=== PATIENT | male | born 1970 | race Caucasian/White ===

== ENCOUNTER → 2018-06-26 13:33 | Outpatient (CLI) | payer OTHER, SELFPAY ==
--- NOTE | 2018-06-26 13:37 | CT_ITS ---
STUDY: CT MAXILLOFACIAL SINUSES REASON FOR EXAM: Male, 48 years old. Nasal polyps, previous surgery RADIATION DOSAGE (If Supplied By Facility): CTDIvol = ( 33.45 ) mGy, DLP = ( 780.55 ) mGycm TECHNIQUE: The patient was scanned in a multi detector CT scanner. High resolution axial imaging was performed without the administration of intravenous contrast material. Sagittal and coronal images were reconstructed. Individualized dose optimization techniques were used for this CT. COMPARISON: None. FINDINGS: FRONTAL SINUSES: Normal aeration, with mucosal inflammatory disease. ETHMOIDAL SINUSES: Normal aeration, with significant mucosal inflammatory disease. MAXILLARY SINUSES: Normal aeration, with mucosal inflammatory disease. SPHENOIDAL SINUSES: Normal aeration, with mucosal inflammatory disease. There is patency of the left bilateral maxillary infundibuli, with occlusion of the right. There has however been previous antrectomy. The visualized osseous structures are normal. The visualized bilateral orbital contents are normal. CT/Sinus/Facial Bone IMPRESSION: Diffuse og paranasal sinusitis Electronically Signed: Tee Biggs MD at 18:26 EDT , Service support ,
== END ==
PROVIDERS: Referring Provider Otolaryngology; Visit Provider Otolaryngology
DX: J33.9 Nasal polyp, unspecified (principal)
CPT/HCPCS: 70486

== ENCOUNTER 2018-09-24 09:28 | Day surgery (SDC) | payer OTHER, SELFPAY ==
--- NOTE | 2018-09-24 | ETH_PTH ---
PATIENT: GABRIELLA MCFARLANE LOC[place] [facility] [place][id number] AGE/SX: 48/M ROOM: RE09/24/[address]: Dr. Bay Mckeon MD : 1970 BED: DIS: 09/24/2018 SPEC #: [id number] RECD: 09/24/18 14:33 STATUS: MARCIANO ERICKA #: [id number] TRISTON: 09/24/18 00:[address]: Bay Mckeon DEPT: SURGICAL PATHOLOGY RECD BY: Jean-Claude Yung ENTERED: 09/24/18 14:34 SP TYPE: ETH TISS OTHR DR: No Primary Care Phys Tissues: A - Ethmoid sinus, NOS B - Ethmoid sinus, NOS Procedures: Decalcification bone/plaque Surgery Specimen Level III HEADER OPERATION: Functional endoscopic sinus surgery with navigation PRE-OP DIAGNOSIS: Acute recurrent pansinusitis TISSUE SUBMITTED: A - Right ethmoid and maxillary sinus contents, B - Left ethmoid and maxillary sinus contents MICROSCOPIC DIAGNOSIS A. Right ethmoid and maxillary sinus contents, excision: Consistent with chronic sinusitis. Bone with no significant pathologic change. B. Left ethmoid and maxillary sinus contents, excision: Consistent with chronic sinusitis. Bone with no significant pathologic change. AM:dian 09/27/18 MICROSCOPIC DESCRIPTION Slides are reviewed. GROSS DESCRIPTION A - Received in fixative is one container labeled with the patient's name and designated right ethmoid and maxillary sinus contents. The specimen consists of multiple irregular and foamy fragments of red-casey soft tissue that in aggregate measure 6 x 4 x 1 cm. Also present in the specimen is a portion of what appears to be a turbinate measuring 3 x 1 x 0.2 cm. Bottle Blower portions are submitted in one cassette after decalcification. B - Received in fixative is one container labeled with the patient's name and designated left ethmoid and maxillary sinus contents. The specimen consists of multiple irregular fragments of pink-casey soft tissue with portions of grossly presumed turbinates that in aggregate measure 2.5 x 0.8 x 0.3 cm. The specimen is totally submitted in one cassette after decalcification. / AM:dian 09/24/18 TC:3 CPT: 88007 x2, 54104 x2
--- NOTE | 2018-09-24 09:43 | EKG12_ITS ---
Test Reason : PRE-OP Blood Pressure : / mmHG Vent. Rate : 046 BPM Atrial Rate : 046 BPM P-R Int : 146 ms QRS Dur : 098 ms QT Int : 422 ms P-R-T Axes : 069 030 024 degrees QTc Int : 369 ms Sinus bradycardia Otherwise normal ECG Confirmed by LUBNA HUTSON, SRAVANI ([id number]), proposal editor CHAITANYA HOLT ([id number]) on 09/25/2018 1:58:54 PM Referred By: Salty Mckeon Confirmed By:SRAVANI CALVO MD
[2018-09-24 10:06] VITALS: BP 129/88; PULSE 46; RESP 16; TEMP 36.8; O2SAT 100; BMI 24.4
[2018-09-24] MEDS: Oxymetazoline 0.05% 1 SPRAY SPRAY.BTL 15 SPRAY (10:52)
--- NOTE | 2018-09-24 13:24 | OP.PCM_ITS ---
Problem List (1) Chronic pansinusitis Status: Chronic (2) Sinusitis with nasal polyps Status: Chronic Report of Operation Date of Procedure: 09/24/18 Pre-Operative Diagnosis: chronic pansinusitis. sinonasal polyposis Post-Operative Diagnosis: chronic pansinusitis. sinonasal polyposis Surgery/Procedure Performed:: 1. endoscopic maxillary antrostomy with removal of contents, right and left. 2. endoscopic total ethmoidectomy including sphenoidotomy with removal of tissue, right and left. 3. endoscopic frontal sinus exploration, right and left. 4. CT guided navigation. 5. excessive polypectomy, right and left Type of Anesthesia:: General Description of Procedure: on the day of the procedure, after appropriate informed consent was obtained, the patient was brought to the operating room and placed in supine position on the operating table. she was placed under general endotracheal anesthesia; the endotracheal tube was secured, the eyes were lubricated. the image guidance system was set up, registered and accuracy confirmed. the bilateral nasal cavities were decongested with oxymetazoline soaked pledge ts. the superior attachment of the middle turbinate and uncinate process were injected with lidocaine/epinephrine. the left nasal cavity was examined with the endoscope. the acclarent sinuplasty kit was set up and advanced lateral to the superior attachment of the middle turbinate. the fiberoptic light cord was advanced into the frontal sinus and frontal transillumination was seen. the balloon was advanced and inflated to 12 vannesa and deflated. contents were suctionedhe microdebrider was used to remove middle meatus and anterior ethmoid polyps. a maxillary antrostomy and uncinectomy were performed with a santo elevator and blakesley. contents were evacuated. a back biter was used to widen the antrostomy. the ethmoid bulla was entered bluntly using the suction and a combination of a curette and an upgoing blakesley were used to perform a total ethmoidectomy. this was taken superiorly to the skull base and laterally to the lamina. a stankewicz maneuver was performed and no laminar defect was noted. the natural sphenoid os was located and widened using a dodie cut. contents were evacuated. the anterior/inferior portion of the middle turbinate was removed with turbinate s cizzors and cauterized. the area was irrigated, pledgets were replaced, and hemostasis was achieved. the right nasal cavity was examined with the endoscope. the acclarent sinuplasty kit was set up and advanced lateral to the superior attachment of the middle turbinate. the fiberoptic light cord was advanced into the frontal sinus and frontal transillumination was seen. the balloon was advanced and inflated to 12 vannesa and deflated. contents were suctioned.a maxillary antrostomy and uncinectomy were performed with a santo elevator and blakesley. contents were evacuated. a back biter was used to widen the antrostomy. the ethmoid bulla was entered bluntly using the suction and a combination of a curette and an upgoing blakesley were used to perform a total ethmoidectomy. this was taken superiorly to the skull base and laterally to the lamina. a stankewicz maneuver was performed and no laminar defect was noted. the natural sphenoid os was located and widened using a dodie cut. contents were evacuated. the anterior/inferior portion of the middle turbinate was removed with turbinate scizzors and cauterized. the area was irrigated, pledgets were replaced, and hemostasis was achieved. the patient was extubated uneventfully and transferred to the PACU in stable condition.
--- NOTE | 2018-09-24 13:32 | DCINST_ITS ---
You will use the following diet at home:: No restrictions Your food should be the consistency of: Regular Discharge Activity: Return to Normal Activity Call your doctor if your incision/area has: Increased Pain/ Swelling Additional Dressing/Incision Instructions:: irrigate nasal cavities 5-6 times daily with saline spray Allergies/Adverse Reactions: Allergies No Known Allergies Allergy (Verified 09/23/18 12:50) Medications to take at Discharge Albuterol Inhaler [Ventolin Hfa (SP)] 1 - 2 puff INHALATION Q4H PRN PRN 09/23/18 Fexofenadine HCl [Ania Allergy] 180 mg PO DAILY 09/23/18 Fluticasone 0.05% [Flonase Nasal Success] 2 spray NASAL BID 09/23/18 Fluticasone/Salmeterol [Advair 250-50 Diskus] 1 each IH DAILY 09/23/18 Prednisone 30 mg PO DAILY 09/23/18 Acetaminophen/Codeine #3 [Tylenol#3] 1 tab PO Q6H PRN PRN 5 Days #15 tab 09/24/18 MethylPREDNISolone DosePak [Medrol DosePak] 4 mg PO UD #1 box 09/24/18 The following prescriptions were given: Acetaminophen/Codeine #3 [Tylenol#3] 1 tab PO Q6H PRN PRN 5 Days #15 tab PRN Reason: Pain MethylPREDNISolone DosePak [Medrol DosePak] 4 mg PO UD #1 box Primary Care Physician: Care Physician,No Primary [Primary Care Provider] - Test Results: Test results from this visit will be discussed in further detail at your follow- up appointment, if applicable. Please Follow Up With: Salty Mckeon MD When: 1 week
[2018-09-24 13:35] VITALS: BP 121/88; BP 129/88; PULSE 71; RESP 14; TEMP 35.7; O2SAT 91
[2018-09-24 13:47] VITALS: BP 119/89; BP 129/88; PULSE 72; RESP 16; O2SAT 94
[2018-09-24 14:00] VITALS: BP 129/88; BP 136/87; PULSE 62; RESP 16; O2SAT 97
[2018-09-24 14:11] VITALS: BP 129/88; BP 135/85; PULSE 57; RESP 16; TEMP 36.1; O2SAT 94
[2018-09-24] MEDS: Acetaminophen/Codeine #3 Tablet 1 TABLET PO (14:41)
[2018-09-24 15:15] VITALS: BP 129/88
--- OUTSIDE RECORDS SUMMARY | 2018-11-26 10:44 | XMS RPT_ITS ---
:1970 Author Organization OHIP Care Team Providers Name Role Phone Salty Mckeon Attending Unavailable Primay Care Physicia, No Primary Care Unavailable Salty Mckeon Referring Unavailable Salty Mckeon Attending Unavailable Salty Mckeon Referring Unavailable Primay Care Physicia, No Primary Care Unavailable OUMAR ESQUEDA Attending Unavailable NO FAMILY DOCTOR, NO FAMILY DOCTOR Primary Care Unavailable PROBLEMS PROBLEMS DATE TYPE CONDITION / CODE ATTENDING STATUS SOURCE 05/23/2018 Admitting Cough / OUMAR ESQUEDA Active [facility] Healthcare diagnosis R05(ICD-9) Repository 05/23/2018 Final diagnosis 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, Repository not elsewhere classified / J82(ICD-9) 05/23/2018 Admitting Shortness of OUMAR ESQUEDA [facility] diagnosis breath / Repository R06.02(ICD-9) PROCEDURES PROCEDURES No Procedure Records FoundRESULTS RESULTS 12 LEAD ELECTROCARDIOGRAM Observed: 09/25/2018 Status: F Source: [place] 1:59 PM [facility] REPOSITORY [facility] Cardiovascular Services [address] [place] [address] 12 Lead EKG 09/24/18 0953 MR#: [id number] Acct: [id number] Name: GABRIELLA MCFARLANE Rep #: [id number] : 1970 48 From: Oumar Calvo MD Attending Dr: Bay Mckeon MD Status: [place] [facility] [place]: Noel Cantu MD Date: 09/24/18 [place] [facility] [place] Sex: M C Admitted: Test Reason : PRE-OP Blood Pressure : / mmHG Vent. Rate : 046 BPM Atrial Rate : 046 BPM P-R Int : 146 ms QRS Dur : 098 ms QT Int : 422 ms P-R-T Axes : 069 030 024 degrees QTc Int : 369 ms Sinus bradycardia Otherwise normal ECG Confirmed by LUBNA HUTSON, OUMAR ([id number]), deputy editor in chief CHAITANYA HOLT ([id number]) on 09/25/2018 1:58:54 PM Referred By: Salty Mckeon Confirmed By:OUMAR CALVO MD 09/25/18 1359 Date Oumar Calvo MD CC: No Primary Care Physician; Bay Mckeon MD; Noel Cantu MD Signed OPERATIVE REPORT Observed: 09/24/2018 Status: F Source: [place] 2:16 PM [facility] Medical Records Department [address] [place] [address] Operative Report 09/24/18 1324 MR#: [id number] Acct: [id number] Name: GABRIELLA MCFARLANE Rep #: [id number] : 1970 48 From: Salty Mckeon MD PCP: Care Physician, No Primary Status: [facility] Location: [place] [address] Problem List (1) Chronic pansinusitis Status: Chronic (2) Sinusitis with nasal polyps Status: Chronic Report of Operation Date of Procedure: 09/24/18 Pre-Operative Diagnosis: chronic pansinusitis. sinonasal polyposis Post-Operative Diagnosis: chronic pansinusitis. sinonasal polyposis Surgery/Procedure Performed:: 1. endoscopic maxillary antrostomy with removal of contents, right and left. 2. endoscopic total ethmoidectomy including sphenoidotomy with removal of tissue, right and left. 3. endoscopic frontal sinus exploration, right and left. 4. CT guided navigation. 5. excessive polypectomy, right and left Type of Anesthesia:: General Description of Procedure: on the day of the procedure, after appropriate informed consent was obtained, the patient was brought to the operating room and placed in supine position on the operating table. she was placed under general endotracheal anesthesia; the endotracheal tube was secured, the eyes were lubricated. the image guidance system was set up, registered and accuracy confirmed. the bilateral nasal cavities were decongested with oxymetazoline soaked pledgets. the superior attachment of the middle turbinate and uncinate process were injected with lidocaine/epinephrine. the left nasal cavity was examined with the endoscope. the acclarent sinuplasty kit was set up and advanced lateral to the superior attachment of the middle turbinate. the fiberoptic light cord was advanced into the frontal sinus and frontal transillumination was seen. the balloon was advanced and inflated to 12 vannesa and deflated. contents were suctionedhe microdebrider was used to remove middle meatus and anterior ethmoid polyps. a maxillary antrostomy and uncinectomy were performed with a santo elevator and blakesley. contents were evacuated. a back biter was used to widen the antrostomy. the ethmoid bulla was entered bluntly using the suction and a combination of a curette and an upgoing blakesley were used to perform a total ethmoidectomy. this was taken superiorly to the skull base and laterally to the lamina. a stankewicz maneuver was performed and no laminar defect was noted. the natural sphenoid os was located and widened using a dodie cut. contents were evacuated. the anterior/inferior portion of the middle turbinate was removed with turbinate scizzors and cauterized. the area was irrigated, pledgets were replaced, and hemostasis was achieved. the right nasal cavity was examined with the endoscope. the acclarent sinuplasty kit was set up and advanced lateral to the superior attachment of the middle turbinate. the fiberoptic light cord was advanced into the frontal sinus and frontal transillumination was seen. the balloon was advanced and inflated to 12 vannesa and deflated. contents were suctioned.a maxillary antrostomy and uncinectomy were performed with a santo elevator and blakesley. contents were evacuated. a back biter was used to widen the antrostomy. the ethmoid bulla was entered bluntly using the suction and a combination of a curette and an upgoing blakesley were used to perform a total ethmoidectomy. this was taken superiorly to the skull base and laterally to the lamina. a stankewicz maneuver was performed and no laminar defect was noted. the natural sphenoid os was located and widened using a dodie cut. contents were evacuated. the anterior/inferior portion of the middle turbinate was removed with turbinate scizzors and cauterized. the area was irrigated, pledgets were replaced, and hemostasis was achieved. the patient was extubated uneventfully and transferred to the PACU in stable condition. 09/24/18 1416 <Electronically signed by Salty Mckeon MD> Date Salty Mckeon MD CC: No Primary Care Physician; Bay Mckeon MD Signed DISCHARGE INSTRUCTION Observed: 09/24/2018 Status: F Source: [place] 1:32 PM [facility] REPOSITORY [facility] Medical Records Department [address] [place] [address] Instructions for Home/Discharge Instructions 09/24/18 1331 MR#: [id number] Acct: [id number] Name: GABRIELLA MCFARLANE Rep #: [id number] : 1970 48 From: Salty Mckeon MD PCP: Care Physician, No Primary Status: [place] [facility] [place] You will use the following diet at home:: No restrictions Your food should be the consistency of: Regular Discharge Activity: Return to Normal Activity Call your doctor if your incision/area has: Increased Pain/ Swelling Additional Dressing/Incision Instructions:: irrigate nasal cavities 5-6 times daily with saline spray Allergies/Adverse Reactions: Allergies No Known Allergies Allergy (Verified 09/23/18 12:50) Medications to take at Discharge Albuterol Inhaler [Ventolin Hfa (SP)] 1 - 2 puff INHALATION Q4H PRN PRN 09/23/18 Fexofenadine HCl [Ania Allergy] 180 mg PO DAILY 09/23/18 Fluticasone 0.05% [Flonase Nasal [place]] 2 spray NASAL BID 09/23/18 Fluticasone/Salmeterol [Advair 250-50 Diskus] 1 each IH DAILY 09/23/18 Prednisone 30 mg PO DAILY 09/23/18 Acetaminophen/Codeine #3 [Tylenol#3] 1 tab PO Q6H PRN PRN 5 Days #15 tab 09/24/18 MethylPREDNISolone DosePak [Medrol DosePak] 4 mg PO UD #1 box 09/24/18 The following prescriptions were given: Acetaminophen/Codeine #3 [Tylenol#3] 1 tab PO Q6H PRN PRN 5 Days #15 tab PRN Reason: Pain MethylPREDNISolone DosePak [Medrol DosePak] 4 mg PO UD #1 box Primary Care Physician: Care Physician,No Primary [Primary Care Provider] - Test Results: Test results from this visit will be discussed in further detail at your follow-up appointment, if applicable. Please Follow Up With: Salty Mckeon MD When: 1 week 09/24/18 1332 <Electronically signed by Salty Mckeon MD> Date Salty Mckeon MD CC: No Primary Care Physician Signed ETHMOID TISSUE Observed: 09/24/2018 Status: F Source: JAM 12:00 AM [facility] REPOSITORY Patient: GABRIELLA MCFARLANE : 1970 (48/M) Acct Num: [id number] Phys: Bay Mckeon MD Unit Num: [id number] [place] [facility] [place] Specimen: [id number] Received: 09/24/18 - 1433 Spec Type: ETH TISS TISSUES 1 TISSUES: A. Ethmoid sinus, NOS B. Ethmoid sinus, NOS GROSS DESCRIPTION A - Received in fixative is one container labeled with the patient's name and designated right ethmoid and maxillary sinus contents. The specimen consists of multiple irregular and foamy fragments of red-casey soft tissue that in aggregate measure 6 x 4 x 1 cm. Also present in the specimen is a portion of what appears to be a turbinate measuring 3 x 1 x 0.2 cm. Beauty Counselor portions are submitted in one cassette after decalcification. B - Received in fixative is one container labeled with the patient's name and designated left ethmoid and maxillary sinus contents. The specimen consists of multiple irregular fragments of pink-casey soft tissue with portions of grossly presumed turbinates that in aggregate measure 2.5 x 0.8 x 0.3 cm. The specimen is totally submitted in one cassette after decalcification. / AM:dian 09/24/18 TC:3 CPT: 82927 x2, 63625 x2 HEADER OPERATION: Functional endoscopic sinus surgery with navigation PRE-OP DIAGNOSIS: Acute recurrent pansinusitis TISSUE SUBMITTED: A - Right ethmoid and maxillary sinus contents, B - Left ethmoid and maxillary sinus contents MICROSCOPIC DESCRIPTION Slides are reviewed. MICROSCOPIC DIAGNOSIS A. Right ethmoid and maxillary sinus contents, excision: Consistent with chronic sinusitis. Bone with no significant pathologic change. B. Left ethmoid and maxillary sinus contents, excision: Consistent with chronic sinusitis. Bone with no significant pathologic change. AM:dian 09/27/18 Signed Jenaro Amado DO 09/27/18 <signature on file> Performed By: #### PET #### [facility] [address] [facility] [place], [address] SINUS/FACIAL BONE Observed: 06/26/2018 Status: F Source: [place] 1:38 PM [facility] REPOSITORY [facility] Imaging Services [address] [place] [address] Sinus/Facial Bone MR#: [id number] Acct: [id number] Name: GABRIELLA MCFARLANE Rep #: [id number] : 1970 M 48 From: Caden Biggs MD PCP: Care Physician, No Primary Status: REG CLI Study: Sinus/Facial Bone Date of Exam: 06/26/18 Exam# [id number] Ordering Dr: Salty Mckeon MD STUDY: CT MAXILLOFACIAL SINUSES REASON FOR EXAM: Male, 48 years old. Nasal polyps, previous surgery RADIATION DOSAGE (If Supplied By Facility): CTDIvol = ( 33.45 ) mGy, DLP = ( 780.55 ) mGycm TECHNIQUE: The patient was scanned in a multi detector CT scanner. High resolution axial imaging was performed without the administration of intravenous contrast material. Sagittal and coronal images were reconstructed. Individualized dose optimization techniques were used for this CT. COMPARISON: None. FINDINGS: FRONTAL SINUSES: Normal aeration, with mucosal inflammatory disease. ETHMOIDAL SINUSES: Normal aeration, with significant mucosal inflammatory disease. MAXILLARY SINUSES: Normal aeration, with mucosal inflammatory disease. SPHENOIDAL SINUSES: Normal aeration, with mucosal inflammatory disease. There is patency of the left bilateral maxillary infundibuli, with occlusion of the right. There has however been previous antrectomy. The visualized osseous structures are normal. The visualized bilateral orbital contents are normal. CT/Sinus/Facial Bone IMPRESSION: Diffuse og paranasal sinusitis Electronically Signed: Tee Biggs MD at 18:26 EDT , Service support , CC: No Primary Care Physician; Bay Mckeon MD Anchorer: Signed URINALYSIS WITH REFLEX Collected: 05/23/2018 Status: F Source: [facility] CULTURE 9:34 PM REPOSITORY TYPE CODE TESTS RESULT OUT OF REFERENCE UNITS RANGE LAB UCOLR(LOIN C) Color Yellow LAB UAPP(LOINC Clear ) Appearance Clear LAB USPG(LOINC 1.003-1.035 ) Specific [place] 1.014 LAB UPH(LOINC) 5.0-9.0 pH 7.0 LAB ULEU(LOINC Negative ) Leukocytes Esterase Negative LAB UNIT(LOINC Negative ) Nitrite Negative LAB UPRO(LOINC Negative mg/dL ) Protein Negative LAB UGLU(LOINC Negative mg/dL ) Glucose Negative LAB UKET(LOINC Negative mg/dL ) Ketones Negative LAB UURO(LOINC Negative mg/dL ) Urobilinogen <2.0 LAB UBIL(LOINC Negative ) Bilirubin Negative LAB UBLD(LOINC Negative ) Blood Negative LAB UASA(LOINC Negative mg/dL ) Ascorbic Acid Negative LAB UMICP(LOIN C) Automated Urine Microscopy Not indicated Performed By: #### UARFX #### [facility] [address] [place] [address] CHEST 2 VIEW Observed: 05/23/2018 Status: F Source: [facility] 8:35 PM REPOSITORY DATE OF EXAM: May 23 2018 8:35PM CLINICAL HISTORY/ Patient Name: GABRIELLA MCFARLANE STUDY: CHEST 2 VIEW; 05/23/2018 8:35 pm INDICATION: Pain. COMPARISON: None. ACCESSION NUMBER(S): [id number] ORDERING CLINICIAN: OUMAR ESQUEDA FINDINGS: CARDIOMEDIASTINAL SILHOUETTE: Cardiomediastinal silhouette is normal in size and configuration. LUNGS: No consolidation, pleural effusion or pneumothorax. ABDOMEN: No remarkable upper abdominal findings. BONES: No acute osseous abnormality. CONCLUSION: IMPRESSION: No acute cardiopulmonary process. CBC WITH DIFFERENTIAL Collected: 05/23/2018 Status: F Source: [facility] 8:12 PM HEALTHCARE REPOSITORY TYPE CODE TESTS RESULT OUT OF REFERENCE UNITS RANGE LAB WBCIR(LOIN 4.2-11.0 10*3/uL C) WBC 8.2 LAB RBC(LOINC) 4.08-6.37 10*6/uL RBC 5.13 LAB HGB(LOINC) 12.8-17.7 g/dL HGB 15.5 LAB HCT(LOINC) 38.4-54.9 % HCT 46.5 LAB MCV(LOINC) 83.3-98.2 fL MCV 90.6 LAB MCH(LOINC) 27.5-32.9 pg MCH 30.2 LAB MCHC(LOINC 30.5-35.4 g/dL ) MCHC 33.3 LAB RDWCV(LOIN 12.0-15.4 % C) RDW CV 13.2 LAB RDWSD(LOIN 39.3-48.6 fL C) RDW SD 45.3 LAB PLTC(LOINC 155-404 10*3/uL ) Platelet Count 251 LAB MPV(LOINC) 9.9-12.1 fL MPV 11.2 LAB ASEGR(LOIN 2.22-7.53 10*3/uL C) Neutrophils Absolute 3.46 LAB ALYMR(LOIN 0.40-2.84 10*3/uL C) Lymphocytes Absolute 2.32 LAB AMONR(LOIN 0.25-1.33 10*3/uL C) Monocytes Absolute 0.63 LAB AEOSR(LOIN 0.01-0.46 10*3/uL C) Eosinophils High Absolute 1.71 LAB ABASR(LOIN 0.01-0.09 10*3/uL C) Basophils Absolute 0.08 LAB IGRA(LOINC % ) Immature Granulocytes 0.2 LAB IGR(LOINC) 10*3/uL Imm Grans Absolute 0.02 LAB SEGC(LOINC 46.2-79.1 % ) Low Neutrophils 42.1 LAB LYMPC(LOIN 9.4-41.1 % C) Lymphocytes 28.2 LAB MONOC(LOIN 3.0-16.2 % C) Monocytes 7.7 LAB EOSC(LOINC 0.0-6.7 % ) Eosinophils High 20.8 LAB BASOC(LOIN 0.0-1.3 % C) Basophils 1.0 Performed By: #### [id number] #### [facility] [address] [place] [address] [place] [address] COMPREHENSIVE METABOLIC Collected: 05/23/2018 Status: F Source: [facility] PANEL 8:12 PM HEALTHCARE REPOSITORY TYPE CODE TESTS RESULT OUT OF REFERENCE UNITS RANGE LAB GLU(LOINC) 70-100 mg/dL Glucose High 101 LAB UREA(LOINC 6-23 mg/dL ) Urea Nitrogen 17 LAB CREAT(LOIN 0.50-1.30 mg/dL C) Creatinine 1.10 LAB GFR(LOINC) Glomerular >60 Filtration Rate Result Comment: Interpretation for Chronic Kidney Disease: Stages 1&2 >60 Healthy or potential kidney damage. Mild decrease of GFR. Stage 3 30-59 Moderate decrease of GFR. Stage 4 15-29 Severe decrease of GFR. Stage 5 <15 Kidney failure or on dialysis. LAB CA(LOINC) 8.6-10.3 mg/dL Calcium 9.4 LAB SOD(LOINC) 136-145 mmol/L Sodium 142 LAB POT(LOINC) 3.5-5.1 mmol/L Potassium 3.9 LAB CHLOR(LOINC) 98-107 mmol/L Chloride 104 LAB BICAR(LOINC) 21-32 mmol/L Bicarbonate 29 LAB ALB(LOINC) 3.4-5.0 g/dL Albumin 4.3 LAB BILIT(LOINC) 0.0-1.2 mg/dL Bilirubin, Total 0.5 LAB ALP(LOINC) 45-117 U/L Alkaline Phosphatase 59 LAB TP(LOINC) 6.4-8.2 g/dL Total Protein 6.6 LAB ALT(LOINC) 10-52 U/L ALT (SGPT) 36 LAB AST(LOINC) 13-39 U/L AST (SGOT) 29 LAB ANGAP(LOINC) 10-20 mmol/L Anion Gap 13 LAB AGRAT(LOINC) 0.9-2.4 A/G Ratio 1.9 LAB BCRAT(LOINC) 5-25 Urea/Creatinine Ratio 15 Performed By: #### [id number] #### [facility] [address] [place] [address] [place] [address] ALLERGIES ALLERGIES DATE TYPE / CODE NAME / CODE REACTION SEVERITY SOURCE 09/23/2018 Drug No Known Unknown [facility] Allergy/4160 Allergies/F00 [facility] [address](SNOMED 7311734(RXNOR Repository CT) M) ENCOUNTERS ENCOUNTERS ADMIT/DISCHARGE ACCOUNT NUMBER ADMITTING ENCOUNTER LOCATION SOURCE CLASS 09/24/2018/09/24/19 [id number] Ambulatory [address] ding:SDCRoom Repository : AC19 06/26/2018 [id number] Ambulatory [facility] ding:CT Repository 05/23/2018/05/23/20 [id number] Emergency 3Building:VE [facility] 18 RRoom: Healthcare HB06Rdp: Repository VE05-[id number] 05/23/2018 [id number] Ambulatory [address] [place] [address] Repository PAYERS PAYERS ENCOUNTER GUARANTOR PAYER SUBSCRIBER SOURCE 09/24/2018 GABRIELLA L Primary GABRIELLA L [facility] Insurance:POOJA STREETER: [facility] Number: [id number] [id number] [address]Rol: Date:[id number] [address]AKHANK HENDRICKSON () [address]AX: 09/24/2018 Secondary NOT GIVENUNK Jam Insurance:SELF PAY [facility] Number: Effective Repository Date:2018-07-03 06/26/2018 GABRIELLA [facility]A [id number] Insurance: PATRICKDOB[facility]: [id number], [id number]ository [place] [address]Fmu: Date:[id number] [address] [place] [address] () [address]CM: 06/26/2018 Secondary NOT GIVENUNK [place] Insurance:SELF PAY [facility] Number: Effective Repository Date:2018-06-14 05/23/2018 GABRIELLA [facility] PATRICKDOB: Insurance:^L^2 PATRICKDOB: Repository 59^^^[id number]^XXPolunitypoint health-[facility] [id number] VACA Number: [place] [id number] [address] Date:Plan [address] Name:[facility] [address] [id number]: 05/23/2018 [facility] PATRICKDOB: Insurance:[employer] PATRICKDOB: [facility] Number: [id number] Repository VACA [id number] [place] Date:Plan Name:Health [place], [place] [address]Zbh: [phone]: () [phone]
== END 2018-09-24 15:25 | disposition home or self-care (01) ==
LOC: SDC 09:29 → AC 09:31
PROVIDERS: Referring Provider Otolaryngology; Visit Provider Otolaryngology
PROC: (CPT 31259; principal; 2018-09-24 10:45)
DX: J01.41 Acute recurrent pansinusitis (principal); J32.4 Chronic pansinusitis; J33.8 Other polyp of sinus; J33.9 Nasal polyp, unspecified; J45.909 Unspecified asthma, uncomplicated; E78.00 Pure hypercholesterolemia, unspecified; Z79.52 Long term (current) use of systemic steroids; Z79.899 Other long term (current) drug therapy
CPT/HCPCS: 00160; 31259; 31267; 31276; 88304; 88305; 88311; 93005; J7120; J2405

== ENCOUNTER → 2020-01-16 15:00 | Outpatient (CLI) | payer OTHER, SELFPAY ==
--- NOTE | 2020-01-16 15:03 | CT_ITS ---
STUDY: CT MAXILLOFACIAL SINUSES REASON FOR EXAM: Male, 49 years old. SINUSITIS, JUMA YUNIER RADIATION DOSAGE (If Supplied By Facility): CTDIvol = ( 33.06 ) mGy, DLP = ( 804.92 ) mGycm TECHNIQUE: The patient was scanned in a multi detector CT scanner. High resolution axial imaging was performed without the administration of intravenous contrast material. Sagittal and coronal images were reconstructed. Individualized dose optimization techniques were used for this CT. COMPARISON: Comparison is made with prior study dated June 26, 2018. FINDINGS: FRONTAL SINUSES: Opacification of the frontal sinuses. ETHMOIDAL SINUSES: Opacification of the ethmoid sinuses with thickening of the bony septations. MAXILLARY SINUSES: Opacification of the maxillary sinuses bilaterally. SPHENOIDAL SINUSES: Opacification of the sphenoid sinus. Obliteration of the ostiomeatal complex bilaterally. Normal bilateral middle turbinates. Normal bilateral inferior turbinates. Normal midline nasal septum. Opacification of the nasal fossa bilaterally. The visualized osseous structures are normal. The visualized bilateral orbital contents are normal. CT/Sinus/Facial Bone IMPRESSION: Pansinusitis. Electronically Signed: Jose Rafael Musa, at 15:36 EDT , Service support ,
== END ==
PROVIDERS: Referring Provider Otolaryngology; Visit Provider Otolaryngology
DX: J32.9 Chronic sinusitis, unspecified (principal)
CPT/HCPCS: 70486

== ENCOUNTER 2020-02-10 06:03 | Day surgery (SDC) | payer OTHER, SELFPAY ==
--- NOTE | 2020-02-10 06:13 | EKG12_ITS ---
Test Reason : PRE OP Blood Pressure : / mmHG Vent. Rate : 042 BPM Atrial Rate : 042 BPM P-R Int : 140 ms QRS Dur : 092 ms QT Int : 454 ms P-R-T Axes : 061 020 014 degrees QTc Int : 379 ms Marked sinus bradycardia Abnormal ECG When compared with ECG of 24-SEP-2018 09:53, No significant change was found Confirmed by AMMY HUTSON, CHLOÉ ([id number]), editor map ALLYSON JACOBS ([id number]) on 02/17/2020 9:53:06 AM Referred By: Salty Mckeon Confirmed By:CHLOÉ GIMENEZ MD
[2020-02-10 06:39] VITALS: BP 129/78; PULSE 48; RESP 16; TEMP 36.6; O2SAT 100; BMI 24.5
[2020-02-10] MEDS: Lactated Ringers 1,000 ML 100 ML IV (06:44)
[2020-02-10 06:52] LABS: Anion Gap 5 (5-15); BUN 22 mg/dL (7-18); Calcium,Total 8.6 mg/dL (8.5-10.1); Chloride 108 mmol/L (98-107); Creatinine, Serum 0.81 mg/dL (0.70-1.30); EST Glomerular Filtration Rate 108 mL/min (>60); Est Glom Filt Rate - Afr Amer 130 mL/min (>60); Estimated Creatinine Clearance 101.74 ml/min; Glucose 100 mg/dL (74-106); Potassium 3.4 mmol/L (3.5-5.1); Sodium Level 140 mmol/L (136-145)
--- NOTE | 2020-02-10 07:30 | ETH_PTH ---
PATIENT: GABRIELLA MCFARLANE LOC: [facility] U#:[id number] AGE/SX: 49/M ROOM: RE02/10/[address]: Dr. Bay Mckeon MD : 1970 BED: DIS: 02/10/2020 SPEC #: [id number] RECD: 02/10/20 09:52 STATUS: MARCIANO ERICKA #: [id number] TRISTON: 02/10/20 07:[address]: Bay Mckeon DEPT: SURGICAL PATHOLOGY RECD BY: Bryan Garnica ENTERED: 02/10/20 10:41 SP TYPE: ETH TISS OTHR DR: No Primary Care Phys Tissues: A - Ethmoid sinus, NOS B - Ethmoid sinus, NOS Procedures: Special Stain Group I Surgery Specimen Level IV GMS Stain (control) HEADER OPERATION: Functional endoscopic sinus surgery PRE-OP DIAGNOSIS: Chronic sinusitis TISSUE SUBMITTED: A - Right ethmoid and maxillary sinus contents, B - Left ethmoid and maxillary sinus contents MICROSCOPIC DIAGNOSIS A. Right ethmoid and maxillary sinus contents: Fragments of respiratory mucosa with chronic inflammation. See comment. B. Left ethmoid and maxillary sinus contents: Fragments of respiratory mucosa with chronic inflammation. Special stain for fungi is negative for organisms; matched control is appropriate. SJ:rg 02/11/20 COMMENT A. The specimen predominantly consists of blood and mucous. Please make reference to previous specimen ([id number]) right and left ethmoid and maxillary sinus contents with diagnosis of consistent with chronic sinusitis. MICROSCOPIC DESCRIPTION Slides are reviewed. GROSS DESCRIPTION A - Received in fixative is one container labeled with the patient's name and designated right ethmoid and maxillary sinus contents. The specimen consists of multiple fragments of hemorrhagic soft tissue with mucoid tissue that in aggregate measure 5 x 5 x 1.5 cm. Buckle Wire Inserter sections are submitted in two cassettes. B - Received in fixative is one container labeled with the patient's name and designated left ethmoid and maxillary sinus contents. The specimen consists of multiple fragments of pink hemorrhagic soft tissue that in aggregate measure 3 x 4 x 1 cm. Buckle Wire Inserter sections are submitted in two cassettes. / SJ:dian 02/10/20 TC:3 CPT: 68440 x2, 05830
[2020-02-10] MEDS: Oxymetazoline 0.05% 1 SPRAY SPRAY.BTL 15 SPRAY (07:45)
--- NOTE | 2020-02-10 09:05 | PCM.DC ---
You will use the following diet at home:: No restrictions Your food should be the consistency of: Regular Discharge Activity: Return to Normal Activity Call your doctor if your incision/area has: Increased Pain/ Swelling Additional Dressing/Incision Instructions:: irrigate nose 5 times daily with a lot of saline solution Allergies/Adverse Reactions: Allergies No Known Allergies Allergy (Verified 02/03/20 11:25) Medications to take at Discharge Albuterol Inhaler [Ventolin Hfa (SP)] 1 - 2 puff INHALATION Q4H PRN PRN 09/23/18 Fexofenadine HCl [Ania Allergy] 180 mg PO DAILY 09/23/18 Fluticasone 0.05% [Flonase Nasal [place]] 2 spray NASAL BID 09/23/18 Fluticasone/Salmeterol [Advair 250-50 Diskus] 2 puff IH BID 09/23/18 Primary Care Physician: Care Physician,No Primary [Primary Care Provider] - Test Results: Test results from this visit will be discussed in further detail at your follow-up appointment, if applicable. Please Follow Up With: Salty Mckeon MD When: 1 week
--- NOTE | 2020-02-10 09:08 | PCM.OPRPT ---
Problem List (1) Sinusitis with nasal polyps Status: Chronic Report of Operation Date of Procedure: 02/10/20 Pre-Operative Diagnosis: 1. chronic pansinusitis. 2. sinonasal polyposis Post-Operative Diagnosis: 1. chronic pansinusitis. 2. sinonasal polyposis Surgery/Procedure Performed:: 1. endoscopic total ethmoidectomy with sphenoidotomy and removal of contents, right and left. 2. endoscopic maxillary antrostomy with removal of contents, right and left. 3. endoscopic frontal sinus exploration with removal of contents, right and left. 4. endoscopic extensive removal of polyps, right and left. 5. CT guided image navigation Type of Anesthesia:: General Description of Procedure: on the day of the procedure, after appropriate informed consent was obtained, the patient was brought to the operating room and placed in supine position on the operating table. he was placed under endotracheal anesthesia by the anesthesiologist. the endotracheal tube was secured, the eyes were lubricated. the image navigation was set up and accuracy confirmed. the bilateral nasal cavities were decongested and injected with lidocaine/epinephrine. the zero degree endoscope was placed in the left nasal cavity. extensive polyps were debrided in the anterior nasal cavity, middle meatus and sphenoethmoidal recess. the antrostomy had stenosed over. using the microdebrider and a back biter, the antrostomy/uncinectomy was revised and contents were evacuated. a revision total ethmoidectomy was performed with the microdebrider. this was taken to the skull base superiorly and lamina laterally. extensive polyps were debrided. a stankewicz maneuver was performed and no laminar defect was noted. the navigation was used to find the previously widened sphenoid os. the os was widedned with the microdebrider and fungus was removed from the sphenoid cavity. a frontal sinus seeker and upgoing blakesley were used to evacuate the frontal recess of pus and polyps. pledgets were placed, hemostasis was achieved and propel stents were placed. the zero degree endoscope was placed in the right nasal cavity. extensive polyps were debrided in the anterior nasal cavity, middle meatus and sphenoethmoidal recess. the antrostomy had stenosed over. using the microdebrider and a back biter, the antrostomy/uncinectomy was revised and contents were evacuated. a revision total ethmoidectomy was performed with the microdebrider. this was taken to the skull base superiorly and lamina laterally. extensive polyps were debrided. a stankewicz maneuver was performed and no laminar defect was noted. the navigation was used to find the previously widened sphenoid os. the os was widedned with the microdebrider and fungus was removed from the sphenoid cavity. a frontal sinus seeker and upgoing blakesley were used to evacuate the frontal recess of pus and polyps. pledgets were placed, hemostasis was achieved and propel stents were placed. an orogastric tube was inserted and gastric contents were evacuated. the patient was awoken from anesthesia and transferred to the PACU in stable condition.
[2020-02-10 09:29] VITALS: BP 129/78; BP 157/96; PULSE 51; RESP 14; TEMP 36.1; O2SAT 96
[2020-02-10 09:44] VITALS: BP 129/78; BP 144/89; PULSE 43; RESP 16; O2SAT 98
[2020-02-10 09:54] VITALS: BP 129/78; BP 134/85; PULSE 40; RESP 14; TEMP 36.1; O2SAT 96
[2020-02-10 11:25] VITALS: BP 129/78; BP 139/78; PULSE 58; RESP 18; TEMP 35.9; O2SAT 100
== END 2020-02-10 11:46 | disposition home or self-care (01) ==
LOC: SDC 06:05 → AC 06:11
PROVIDERS: Anesthesiology; Referring Provider Otolaryngology; Visit Provider Otolaryngology
PROC: (CPT 31253; principal; 2020-02-10 07:00)
DX: J32.8 Other chronic sinusitis (principal); J33.0 Polyp of nasal cavity; J45.909 Unspecified asthma, uncomplicated; Z11.59 Encounter for screening for other viral diseases
CPT/HCPCS: 00160; 31253; 31259; 31267; 80048; 87635; 88305; 88312; 93005; G2023; J7120; J2405; U0003

== ENCOUNTER → 2020-04-23 | Outpatient (CLI) | payer OTHER, SELFPAY | END | disposition home or self-care (01) | LOC: LABSPEC 15:18 | PROVIDERS: Referring Provider Otolaryngology; Visit Provider Otolaryngology | DX: J32.9 Chronic sinusitis, unspecified (principal) | CPT/HCPCS: 87070; 87077; 87186; 87205 ==